=== PATIENT | male | born 1970 | race Caucasian/White ===

== ENCOUNTER → 2022-04-10 | Outpatient (CLI) | payer BC, SELFPAY ==
[2022-04-10 10:04] LABS: Uric Acid 6.3 mg/dL (3.5-7.2)
[2022-04-10 10:15] LABS: Erythrocyte Sedimentation Rate 40 mm/hr (0-20)
== END | disposition home or self-care (01) ==
PROVIDERS: Visit Provider Nurse Practitioner Acute Care
DX: M25.571 Pain in right ankle and joints of right foot (principal); M25.473 Effusion, unspecified ankle; M10.9 Gout, unspecified
CPT/HCPCS: 84550; 85652